=== PATIENT | female | born 1960 | race Caucasian/White ===

== ENCOUNTER 2024-06-11 08:41 | Day surgery (SDC) | payer OTHER ==
[2024-06-11] VITALS (23 sets, daily range): BP systolic 95–177; BP diastolic 56–150
[~2024-06-11] VITALS: Ht 129.5 cm; Wt 64.5 kg
[~2024-06-11 08:41] MED LIST: ASPI81CH PO; Benzocaine Oral Spray 0.5ML UD ONE; DULO60 PO; ERGO50000 PO; METF500 PO; NS 500 ML IV SCH; OLME20-12. PO; SIMV40 PO; VITAMIN D5000 UNI1 PO; Venlafaxine HC225 MG PO; propofoL 40 ML IV ONE
--- NOTE | 2024-06-11 10:03 | NUR ---
06/11/24 1003 Luna Dennis CONFIRMED AND REVIEWED H&P, MEDCICATIONS, ALLERGIES, MEDICAL HISTORY, RESPIRATORY HISTORY, VITAL SIGNS, 3-LEAD EKG, CONSENTS, AND PHYSICIAN ORDERS. PATIENT CONFIRMS NPO STATUS AND AGREES WITH SCHEDULED PROCEDURE. MONITOR INTACT WITH CONTINUOUS PULSE OXIMETRY, CAPNOGRAPHY, 3-LEAD EKG, INTERMITTENT BP. SUPPLEMENTAL O2 TO BE TITRATED THROUGHOUT PROCEDURE TO MAINTAIN O2 SATURATION ABOVE 90%. PATIENT DETERMINED TO BE ASA APPROPRIATE FOR PROPOFOL SEDATION PRIOR TO START OF PROCEDURE BY DR. POLLARD
[2024-06-11] MEDS ORDERED: Midazolam HCl 1MG / ML 2ML Vial ONE (10:05)
--- NOTE | 2024-06-11 10:48 | NUR ---
PT TO DAY SURGERY STEP DOWN FROM EGD AND COLONOSCOPY; BEDSIDE REPORT RECEIVED. PT IS AWAKE, ALERT AND ORIENTED; ABLE TO MOVE SELF IN BED. VSS. LUNGS C/T. PT ABLE TO DEEP BREATHE AND COUGH.
--- NOTE | 2024-06-11 11:04 | NUR ---
PT TOLERATING PO FLUIDS WELL. OMEPRAZOLE 20MG PO #[phone] REFILLS CALLED INTO [facility].
--- NOTE | 2024-06-11 11:09 | NUR ---
Discharge instructions reviewed with patient. Patient verbalizes understanding. Copy given to patient to take home. Patient States Post-Procedure ride home has been arranged.
--- NOTE | 2024-06-11 11:23 | NUR ---
Patient up to Ambulate independently. Gait steady. Discharged via wheelchair to private car for ride home.
--- NOTE | 2024-06-11 11:25 | NUR ---
Discharged via wheelchair to private car for ride home.
== END 2024-06-11 11:25 | disposition home or self-care (01) ==
LOC: ORSCMMR 08:41 → ORD 10:00 → ORSCMMR 11:25
PROVIDERS: Internal Medicine Gastroenterology
PROC: 0DB98ZX Excision of Duodenum, Via Natural or Artificial Opening Endoscopic, Diagnostic (ICD-10-PCS; principal; 2024-06-11 10:00)
PROC: 0DBN8ZX Excision of Sigmoid Colon, Via Natural or Artificial Opening Endoscopic, Diagnostic (ICD-10-PCS; principal; 2024-06-11 10:00)
PROC: 0DB48ZX Excision of Esophagogastric Junction, Via Natural or Artificial Opening Endoscopic, Diagnostic (ICD-10-PCS; principal; 2024-06-11 10:00)
PROC: 0DBL8ZX Excision of Transverse Colon, Via Natural or Artificial Opening Endoscopic, Diagnostic (ICD-10-PCS; principal; 2024-06-11 10:00)
PROC: 0DB78ZX Excision of Stomach, Pylorus, Via Natural or Artificial Opening Endoscopic, Diagnostic (ICD-10-PCS; principal; 2024-06-11 10:00)
PROC: 0DBP8ZX Excision of Rectum, Via Natural or Artificial Opening Endoscopic, Diagnostic (ICD-10-PCS; principal; 2024-06-11 10:00)
DX: D46.4 Refractory anemia, unspecified (principal); K31.89 Other diseases of stomach and duodenum; D12.3 Benign neoplasm of transverse colon; D12.8 Benign neoplasm of rectum; K21.9 Gastro-esophageal reflux disease without esophagitis; K29.71 Gastritis, unspecified, with bleeding; K22.2 Esophageal obstruction; G47.33 Obstructive sleep apnea (adult) (pediatric); E11.9 Type 2 diabetes mellitus without complications; I10 Essential (primary) hypertension; E78.00 Pure hypercholesterolemia, unspecified; F32.A Depression, unspecified; Z79.84 Long term (current) use of oral hypoglycemic drugs; Z79.899 Other long term (current) drug therapy; Z79.82 Long term (current) use of aspirin
CPT/HCPCS: 82947; 88305; 88342; A9270; J2250; J2704; J7040